=== PATIENT | female | born 1960 | race Caucasian/White ===

== ENCOUNTER 2018-01-03 07:55 | Emergency (ER) | payer MEDICARE ==
[~2018-01-03] VITALS: Ht 165.1 cm; Wt 100.0 kg
[2018-01-03 07:57] VITALS: BP 187/76; PULSE 73; RESP 16; TEMP 98.2; O2SAT 97
[2018-01-03 08:20] VITALS: BP 182/81; PULSE 69; RESP 19; TEMP 98.1; O2SAT 98
[2018-01-03] MEDS ORDERED: SODIUM CHLORIDE 0.9% FLUSH 10 ML FLUSH IVF PRN (08:30)
[2018-01-03] MEDS ORDERED: KETOROLAC TROMETHAMINE 30 MG/ML (IVP) VIAL IV PUSH ONE (08:30)
[2018-01-03 08:39] VITALS: RESP 18; O2SAT 98
--- NOTE | 2018-01-03 09:08 | RADRPT ---
EXAM DATE/TIME: 01/03/2018 08:39 [facility] COMPARISON: No previous studies available for comparison. INDICATIONS : Short of breath MEDICAL HISTORY : Stroke. Diabetes mellitus type I. Pneumonia SURGICAL HISTORY : None. ENCOUNTER: Initial ACUITY: 1 day PAIN SCORE: 0/10 LOCATION: chest FINDINGS: A single view of the chest demonstrates the lungs to be symmetrically aerated without evidence of mas s, infiltrate or effusion. The cardiomediastinal contours are unremarkable. Osseous structures are intact. CONCLUSION: No acute disease. Isaiah Zambrano MD on January 03, 2018 at 9:05 Board Certified Radiologist. This report was verified electronically.
[2018-01-03] MEDS ORDERED: LANTUS2P SQ (09:13)
[2018-01-03] MEDS ORDERED: PRED5TAB PO (09:13)
[2018-01-03] MEDS ORDERED: AMLO5TAB2 PO (09:13)
[2018-01-03] MEDS ORDERED: TRAZ50TA12 PO (09:13)
[2018-01-03] MEDS ORDERED: ATOR20TA15 PO (09:13)
[2018-01-03] MEDS ORDERED: LEVO150T7 PO (09:13)
[2018-01-03] MEDS ORDERED: ZOLO100T PO (09:13)
[2018-01-03] MEDS ORDERED: TYLE325T PO (09:13)
[2018-01-03] MEDS ORDERED: LOSA50TA PO (09:13)
[2018-01-03] MEDS ORDERED: METH2.5T PO (09:13)
[2018-01-03] MEDS ORDERED: GLUC0.8I2 IM (09:13)
[2018-01-03] MEDS ORDERED: FLUT1SPR5 EACH NARE (09:13)
[2018-01-03] MEDS ORDERED: METO1TAB43 PO (09:13)
[2018-01-03] MEDS ORDERED: FOLI800T PO (09:13)
[2018-01-03] MEDS ORDERED: NOVOLOGP2 SQ (09:13)
[2018-01-03 09:19] LABS: AUTOMATED NEUTROPHIL # 5.3 TH/MM3 (1.8-7.7); BASOPHIL % 0.5 % (0.0-2.0); EOSINOPHIL # 0.1 TH/MM3 (0-0.4); EOSINOPHIL % 1.3 % (0.0-4.0); HEMATOCRIT 35.7 % (35.0-46.0); HEMOGLOBIN 12.2 GM/DL (11.6-15.3); LYMPH % 30.4 % (9.0-44.0); LYMPHOCYTE # 2.6 TH/MM3 (1.0-4.8); MEAN CELL VOLUME 97.6 FL (80.0-100.0); MEAN CORPUSCULAR HEMOGLOBIN 33.3 PG (27.0-34.0); MEAN CORPUSCULAR HGB CONC 34.1 % (32.0-36.0); MEAN PLATELET VOLUME 8.3 FL (7.0-11.0); MONOCYTE # 0.5 TH/MM3 (0-0.9); NEUT % 61.8 % (16.0-70.0); PLATELET COUNT 299 TH/MM3 (150-450); RED BLOOD COUNT 3.65 MIL/MM3 (4.00-5.30); RED CELL DISTRIBUTION WIDTH 13.9 % (11.6-17.2); WHITE BLOOD COUNT 8.6 TH/MM3 (4.0-11.0)
[2018-01-03 09:36] LABS: ALT (GPT) 57 U/L (10-53)
[2018-01-03 09:38] LABS: ALKALINE PHOSPHATASE 72 U/L (45-117); TOTAL BILIRUBIN ADULT 0.2 MG/DL (0.2-1.0); TOTAL PROTEIN 7.3 GM/DL (6.4-8.2)
--- NOTE | 2018-01-03 09:38 | RADRPT ---
EXAM DATE/TIME: 01/03/2018 08:40 [facility] COMPARISON: CHEST SINGLE AP, January 03, 2018, 8:39. INDICATIONS : Left lateral ankle pain, denies injury MEDICAL HISTORY : Stroke. Diabetes mellitus type I. Pneumonia SURGICAL HISTORY : None. ENCOUNTER: Initial ACUITY: 1 week PAIN SCORE: 4/10 LOCATION: Left Ankle FINDINGS: The examination demonstrates a minimally displaced fracture through the distal fibula. The ankle mort ise itself appears intact. The exam demonstrates atherosclerotic plaquing involving the tibial vessels. CONCLUSION: 1. Minimally displaced fracture involving the distal fibula. Carroll Gar MD on January 03, 2018 at 9:34 Board Certified Radiologist. This report was verified electronically.
[2018-01-03 09:39] LABS: ALBUMIN 3.6 GM/DL (3.4-5.0); AST (GOT) 60 U/L (15-37); BICARBONATE 28.5 MEQ/L (21.0-32.0); BLOOD UREA NITROGEN 20 MG/DL (7-18); CALCIUM 9.3 MG/DL (8.5-10.1); CHLORIDE 101 MEQ/L (98-107); CREATININE 1.09 MG/DL (0.50-1.00); GLOMERULAR FILTRATION RATE 51 ML/MIN (>89); GLUCOSE,RANDOM 185 MG/DL (74-106); SODIUM (NA) 136 MEQ/L (136-145)
--- NOTE | 2018-01-03 09:48 | RADRPT ---
EXAM DATE/TIME: 01/03/2018 09:26 [facility] COMPARISON: No previous studies available for comparison. INDICATIONS : Left ankle swelling, pain and redness. MEDICAL HISTORY : Cerebrovascular disease. Arthritis. Diabetes. SURGICAL HISTORY : Hysterectomy. ENCOUNTER: Initial ACUITY: 1 day PAIN SCORE: 6/10 LOCATION: Left leg. TECHNIQUE: Venous ultrasound of the leg was performed from the inguinal ligament to the proximal calf. Real-brenna e, color Doppler and spectral tracing, compression and augmentation techniques were used. FINDINGS: There is normal compressibility of the deep venous system from the inguinal region to the proximal ca lf. No echogenic clot is seen in the lumen of the common femoral, femoral, popliteal, and posterior tibial veins. There is a normal response of the venous system to proximal and distal augmentation an d respiration. CONCLUSION: 1. No sonographic evidence for left lower extremity DVT. Tanner Gonzales MD on January 03, 2018 at 9:45 Board Certified Radiologist. This report was verified electronically.
--- NOTE | 2018-01-03 10:21 | PD ---
HPI Chief Complaint: Edema Time Seen by Provider: 08:22 Travel History International Travel<30 days: No Contact w/Intl Traveler<30days: No Traveled to known affect area: No History of Present Illness HPI Patient is a 57 year old female with history of rheumatoid arthritis and diabetes, who comes in complaining of left ankle pain. She says she drove here from [place] and had some ankle swelling last week. She says it went down quickly, but then the left ankle got swollen and red and it has not improved. She complains of pain to the left ankle as well. She says she spoke with her primary doctor and was told to come in to rule out infection or DVT. She does not recall any injury. She takes Tylenol for pain. Severity is mild to moderate. PFSH Past Medical History Arthritis: Yes (RA & OA) Cerebrovascular Accident: Yes Diabetes: Yes Patient Takes Glucophage: No GERD: Yes Past Surgical History Hysterectomy: Yes Social History Alcohol Use: No Tobacco Use: No Substance Use: No Allergies-Medications (Allergen,Severity, Reaction): Coded Allergies: Iodinated Contrast- Oral and IV Dye (Verified Allergy, Unknown, 01/03/18) Sulfa (Sulfonamide Antibiotics) (Verified Allergy, Unknown, 01/03/18) penicillin G (Verified Allergy, Unknown, 01/03/18) Reported Meds & Prescriptions Reported Meds & Active Scripts Active Reported Trazodone (Trazodone HCl) 50 Mg Tab 50 Mg PO HS Zoloft (Sertraline HCl) 100 Mg Tab 100 Mg PO DAILY Prednisone 5 Mg Tab 5 Mg PO TID Novolog Inj (Insulin Aspart) 1,000 Unit/10 Ml Vial 0 SQ DIRECTED Sliding Scale as directed. Metoprolol Succinate ER 24 HR (Metoprolol Succinate) 100 Mg Tab 100 Mg PO DAILY Methotrexate 2.5 Mg Tab 2.5 Mg PO Q7D Losartan (Losartan Potassium) 50 Mg Tab 50 Mg PO DAILY Levothyroxine (Levothyroxine Sodium) 150 Mcg Tab 150 Mcg PO DAILY Lantus Inj (Insulin Glargine) 1,000 Unit/10 Ml Vial 18 Units SQ HS Glucagon Inj 1 Mg/Ml Inj 1 Mg IM ONCE PRN Folic Acid 0.8 Mg Tab 800 Mcg PO DAILY Flonase Nasal [place] (Fluticasone Nasal [place]) 50 Mcg/Act [place] 50 Mcg EACH NARE BID Atorvastatin (Atorvastatin Calcium) 20 Mg Tab 20 Mg PO HS Atorvastatin (Atorvastatin Calcium) 20 Mg Tab 20 Mg PO HS Amlodipine (Amlodipine Besylate) 5 Mg Tab 5 Mg PO DAILY Tylenol (Acetaminophen) 325 Mg Tab 650 Mg PO Q8HR Review of Systems Except as stated in HPI: all other systems reviewed are Neg General / Constitutional: No: Fever, Chills HENT: No: Headaches, Lightheadedness Cardiovascular: No: Chest Pain or Discomfort Respiratory: No: Shortness of Breath Musculoskeletal: Positive: Pain Skin: Positive Change in Pigmentation Neurologic: No: Weakness, Dizziness Physical Exam Narrative GENERAL: Awake and alert, in no acute distress. SKIN: Focused skin assessment warm/dry. Erythema and warmth to the lateral malleolus on the left. HEAD: Atraumatic. Normocephalic. EYES: Pupils equal and round. No scleral icterus. No injection or drainage. ENT: Mucous membranes pink and moist. NECK: Trachea midline. No JVD. CARDIOVASCULAR: Regular rate and rhythm. No murmur appreciated. RESPIRATORY: No accessory muscle use. Clear to auscultation. Breath sounds equal bilaterally. GASTROINTESTINAL: Abdomen soft, non-tender, nondistended. MUSCULOSKELETAL: No obvious deformities. No clubbing. No cyanosis. soft tissue swelling over the left ankle. Pedal pulses intact. NEUROLOGICAL: Awake and alert. No obvious cranial nerve deficits. Motor grossly within normal limits. Normal speech. PSYCHIATRIC: Appropriate mood and affect; insight and judgment normal. Data Data Last Documented VS Vital Signs Date Time Temp Pulse Resp B/P (MAP) Pulse Ox O2 Delivery O2 Flow Rate FiO2 01/03/18 08:39 98 Room Air 01/03/18 08:39 18 01/03/18 08:21 68 01/03/18 08:20 98.1 Orders Orders Complete Blood Count With Diff (01/03/18 08:29) Comprehensive Metabolic Panel (01/03/18 08:29) B-Type Natriuretic Peptide (01/03/18 08:29) Iv Access Insert/Monitor (01/03/18 08:29) Ecg Monitoring (01/03/18 08:29) Oximetry (01/03/18 08:29) Oxygen Administration (01/03/18 08:29) Chest, Single Ap (01/03/18 08:29) Us Leg Venous Doppler (01/03/18 08:29) Sodium Chloride 0.9% Flush (Ns Flush) (01/03/18 08:30) Ankle, Complete (Klf0pel) (01/03/18 ) Act Partial Throm Time (Ptt) (01/03/18 08:29) Prothrombin Time / Inr (Pt) (01/03/18 08:29) Ketorolac Inj (Toradol Inj) (01/03/18 08:30) Splint Or Brace Apply/Monitor (01/03/18 10:07) Brace Fracture Walker (01/03/18 ) Labs Laboratory Tests Test 01/03/18 08:48 White Blood Count 8.6 TH/MM3 Red Blood Count 3.65 MIL/MM3 Hemoglobin 12.2 GM/DL Hematocrit 35.7 % Mean Corpuscular Volume 97.6 FL Mean Corpuscular Hemoglobin 33.3 PG Mean Corpuscular Hemoglobin Concent 34.1 % Red Cell Distribution Width 13.9 % Platelet Count 299 TH/MM3 Mean Platelet Volume 8.3 FL Neutrophils (%) (Auto) 61.8 % Lymphocytes (%) (Auto) 30.4 % Monocytes (%) (Auto) 6.0 % Eosinophils (%) (Auto) 1.3 % Basophils (%) (Auto) 0.5 % Neutrophils # (Auto) 5.3 TH/MM3 Lymphocytes # (Auto) 2.6 TH/MM3 Monocytes # (Auto) 0.5 TH/MM3 Eosinophils # (Auto) 0.1 TH/MM3 Basophils # (Auto) 0.0 TH/MM3 CBC Comment DIFF FINAL Differential Comment Prothrombin Time 10.0 SEC Prothromb Time International Ratio 1.0 RATIO Activated Partial Thromboplast Time 27.8 SEC Blood Urea Nitrogen 20 MG/DL Creatinine 1.09 MG/DL Random Glucose 185 MG/DL Total Protein 7.3 GM/DL Albumin 3.6 GM/DL Calcium Level 9.3 MG/DL Alkaline Phosphatase 72 U/L Aspartate Amino Transf (AST/SGOT) 60 U/L Alanine Aminotransferase (ALT/SGPT) 57 U/L Total Bilirubin 0.2 MG/DL Sodium Level 136 MEQ/L Potassium Level 4.1 MEQ/L Chloride Level 101 MEQ/L Carbon Dioxide Level 28.5 MEQ/L Anion Gap 7 MEQ/L Estimat Glomerular Filtration Rate 51 ML/MIN B-Type Natriuretic Peptide 28 PG/ML MDM Medical Decision Making Medical Screen Exam Complete: Yes Emergency Medical Condition: Yes Differential Diagnosis fracture vs cellulitis vs DVT Narrative Course Patient is a 57-year-old female who comes in complaining of left ankle pain. Exam shows swelling, erythema and warmth to the left ankle. IV established, labs sent. Labs show no acute abnormalities other than slight elevation in AST and ALT. Patient told about this, she says this has been going on for a while. She is advised to be cautious with Tylenol. Ultrasound of the left leg shows no evidence of DVT. X-ray of the ankle shows a fibular fracture. Last 24 hours Impressions Lower Extremity Ultrasound 01/03/18828 Signed Impressions: Service Date/Time: December 09:26 - CONCLUSION: 1. No sonographic evidence for left lower extremity DVT. Tanner Gonzales MD Chest X-Ray 01/03/18828 Signed Impressions: Service Date/Time: December 08:39 - CONCLUSION: No acute disease. Isaiah Zambrano MD Ankle X-Ray 01/03/18 0000 Signed Impressions: Service Date/Time: December 08:40 - CONCLUSION: 1. Minimally displaced fracture involving the distal fibula. Carroll Gar MD Patient given pain medicine. Placed in a Cam walking boot. Advised follow-up with orthopedics. Advised return to the ED as needed for any worsening symptoms. Diagnosis Primary Impression: Left fibular fracture Qualified Codes: S82.832A - Other fracture of upper and lower end of left fibula, initial encounter for closed fracture Patient Instructions: Ankle Fracture (ED), General Instructions Additional Instructions: Wear the boot until you see an orthopedic surgeon. Take pain medicine as needed. Follow-up with your doctor. Return to the ED as needed for any worsening symptoms. Scripts Tramadol (Tramadol) 50 Mg Tab 50 MG PO Q6H Y for PAIN, #10 TAB 0 Refills Prov: Elena Iniguez MD 01/03/18 Disposition: 01 DISCHARGE HOME Condition: Stable Elena Iniguez MD Jan 03, 2018 10:20
[2018-01-03] MEDS ORDERED: TRAM50TA PO (10:39)
== END 2018-01-03 11:08 | disposition home or self-care (01) ==
LOC: NEPC 07:55
DX: S82.832A Other fracture of upper and lower end of left fibula, initial encounter for closed fracture (principal); X58.XXXA Exposure to other specified factors, initial encounter
CPT/HCPCS: 71045; 73610; 80053; 83880; 85025; 85610; 85730; 93971; 96374; 99285; E0113; J1885; L2114